=== PATIENT | male | born 1955 | race Caucasian/White ===

== ENCOUNTER 2018-09-25 11:43 | Emergency (ER) | payer MEDICARE ==
[~2018-09-25] VITALS: Ht 185.4 cm; Wt 90.0 kg
[2018-09-25] MEDS ORDERED: CYCLOBENZAPR5 MG PO (12:24)
[2018-09-25] MEDS ORDERED: PREDNISONE50 MG PO (12:24)
[2018-09-25] MEDS ORDERED: TRESIBA FL200 UNIT/M SC (12:26)
[2018-09-25] MEDS ORDERED: AMLODIPINE BESYL5 MG PO (12:26)
[2018-09-25] MEDS ORDERED: SIMVASTATIN40 MG PO (12:26)
[2018-09-25] MEDS ORDERED: ENALAPRIL MALEA20 MG PO (12:26)
[2018-09-25 12:30] VITALS: BP 119/81
== END 2018-09-25 12:30 | disposition home or self-care (01) ==
LOC: ED 11:43
DX: M54.2 Cervicalgia (principal); M62.838 Other muscle spasm

== ENCOUNTER 2019-03-02 13:34 | Emergency (ER) | payer MEDICARE ==
[~2019-03-02] VITALS: Ht 185.4 cm; Wt 90.0 kg
[~2019-03-02 13:34] MED LIST: AMLODIPINE BESYL5 MG PO; CYCLOBENZAPR5 MG PO; ENALAPRIL MALEA20 MG PO; PREDNISONE50 MG PO; SIMVASTATIN40 MG PO; TRESIBA FL200 UNIT/M SC
[2019-03-02] MEDS ORDERED: PREDNISONE50 MG PO (14:45)
[2019-03-02 14:57] VITALS: BP 132/80
== END 2019-03-02 14:58 | disposition home or self-care (01) ==
LOC: ED 13:34
DX: M62.830 Muscle spasm of back (principal); I10 Essential (primary) hypertension; E11.9 Type 2 diabetes mellitus without complications; Z79.4 Long term (current) use of insulin